=== PATIENT | male | born 1945 ===

== ENCOUNTER 2019-07-09 11:58 | Inpatient (IN) | payer MEDICARE ==
[~2019-07-09] VITALS: Ht 177.8 cm; Wt 81.8 kg
[2019-07-14 12:06] VITALS: BP 166/101
== END 2019-07-14 17:42 | DRG 64 ==
LOC: ED 15:34 → 4WST 15:38
PROVIDERS: ADMIT Family Medicine; ATTEND Internal Medicine
DX: I63.9 Cerebral infarction, unspecified (principal); G93.41 Metabolic encephalopathy; I47.2 Ventricular tachycardia; D68.69 Other thrombophilia; I27.20 Pulmonary hypertension, unspecified; R47.01 Aphasia; I10 Essential (primary) hypertension; R47.1 Dysarthria and anarthria; E03.9 Hypothyroidism, unspecified; E11.9 Type 2 diabetes mellitus without complications; E78.5 Hyperlipidemia, unspecified; F17.200 Nicotine dependence, unspecified, uncomplicated; F32.9 Major depressive disorder, single episode, unspecified; I48.91 Unspecified atrial fibrillation; N40.0 Benign prostatic hyperplasia without lower urinary tract symptoms; R29.704 NIHSS score 4; Z79.01 Long term (current) use of anticoagulants
CPT/HCPCS: 36415; 70450; 70496; 70498; 70551; 71045; 78452; 80053; 80061; 81003; 82962; 83036; 83605; 83735; 84100; 84443; 84484; 85025; 85610; 93005; 93017; 93306; 93880; 96374; 99291; G0378; J2785; J3475; Q9967; 92523-GN; A9502; C9898; G0515-GN; J0360; J1815; J2060; J2270; J7030